=== PATIENT | male | born 2000 | race Caucasian/White ===

== ENCOUNTER 2024-08-03 03:22 | Emergency (ER) | payer BC ==
--- OUTSIDE RECORDS SUMMARY | 2024-08-03 03:25 | XMS REPORT | Continuity of Care Document ---
Author Name Unknown Address [address] [facility] [address] [place] [address] [facility] Address [address] [place] [address] [address] [place] [address] Care Team Providers Care Art Objects Supervisor Name Role Phone Pcp, Patient Does Not Have A Primary Care Physic bianca Lucia Ferrer Attending Clinician [phone] Unknown, Attending Attending Clinician Unavailab LUCIA Castorena Attending Clinician Unavailable TAY STERLING Attending Clinician Unavaila Tay Marinelli Attending Clinician + [phone] Jai Avendano NP Attending Clinician [phone] Unknown, Attending Attending Clinician Unavailab Damaris Adan Attending Clinician [phone] DAMARIS BOSCH Attending Clinician Unavailable DAKOTA MELGAR Attending Clinician UnavailLucia Singleton Attending Clinician [phone] Doctor Unassigned, Larimore Attending Clinician U navailable Yesika Little Attending Clinician [phone] YESIKA OMER Attending Clinician Unavailable RADHA ARITA Attending Clinician Unavailable Radha Villarreal Attending Clinician [phone] Dakota Melgar MD Attending Clinician [phone] UNKNOWN, ATTENDING Attending Clinician Unavailab Estela Heredia Attending Clinician [phone] Danish Torres MD Attending Clinician [phone] Payers Payer Name Policy Type Policy Number Effective Date Expirati on Date Source [employer] [id number] 2022 00:00:00 Problems Condition Name Condition Details Condition Category Status Onset Date Resolution Date Last Treatment Date Treating Clinician Comments Source 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 episode Disease Active 2019-07 00:00: 00 [facility] KEVIN (generaliz ed anxiety disorder) KEVIN (generaliz ed anxiety disorder) Disease Active 2019-07 00:00: 00 [facility] No known active problems No known active problems Disease [facility] Allergies, Adverse Reactions, Alerts Allergy Name Allergy Type Status Severity Reaction(s) Onset Date Inactive Date Treating Clinician Comments Source NO KNOWN ALLERGIE S Drug Class Active [facility] Social History Social Habit Start Date Stop Date Quantity Comments [facility] intake 2024-06-10 00:00:00 2024-06-10 00:00:00 2.14 /d [facility] Alcohol intake 2023-07-24 00:00:00 2023-07-24 00:00:00 2.14 /d [facility] Exposure to SARS-CoV-2 (event) 2022-09-20 00:00:00 2022-09-30 14:06:00 Not sure [facility] History of Social function 2020-07-24 00:00:00 2020-07-24 00:00:00 [facility] Tobacco use and exposure 2018-06-20 00:00:00 2018-06-20 00:00:00 Smokeless tobacco non-user [facility] Sex assigned at 2000 00:00:00 2000 00:00:00 [facility] Smoking Status Start Date Stop Date Source Never smoked tobacco [facility] Medications Ordered Medication Name Filled Medication Name Start Date Stop Date Current Medication? Ordering Clinician Indication Dosage Frequency Signature (SIG) Comments Components Source methylPREDN ISolone (MEDROL, MARYANNE,) 4 mg tablets 2023-07 00:00: 00 Yes [id number] Take by mouth SEE-INSTRU CTIONS. follow package directions [facility] promethazin e-dextromet horphan 6.25-15 mg/5 mL syrup 2023-07 00:00: 00 06-21 05:59 :00 Yes [id number] 5mL Take 5 mL by mouth 4 (four) times daily as needed for Cough for up to 10 days. [facility] fexofenadin e-pseudoeph edrine (MY-D) 60-120 mg per tablet 2023-07 00:00: 00 06-16 05:59 :00 Yes [id number] 1{tbl} Take 1 tablet by mouth in the morning for 5 days. [facility] cephALEXin 500 mg capsule 2023-07 0 00:00: 00 05-21 04:59 :00 Yes [id number] 500mg Take 1 capsule by mouth in the morning and 1 capsule at noon and 1 capsule in the evening. Do all this for 7 days. [facility] Butalbital- Acetaminoph en-Caff (FIORICET) 50-300-40 mg per capsule -08 00:00: 00 Yes [id number] 1{capsu le} Take 1 capsule by mouth every 4 (four) hours as needed for Other (headache) . [facility] azithromyci n 250 mg tablet 01-20 00:00: 00 09-30 00:00 :00 No [id number] 250mg Take 1 tablet by mouth daily. Take 500 mg day 1, then 250 mg days 2 to 5. [facility] bromphenira mine-pseudo ephedrine-D M (BROMFED DM) 2-30-10 mg/5 mL syrup 01-20 00:00: 00 09-30 00:00 :00 No [id number] 2.5mL Take 2.5 mL by mouth 4 (four) times daily as needed for Congestion /Allergies , Cold symptoms or Cough. [facility] mirtazapine 45 mg tablet 2019-07 230 00:00: 01-13 00:00 :00 No [id number] 45mg Take 1 tablet by mouth at bedtime. [facility] mirtazapine 15 mg tablet 2019-07 2-14 00:00: 00 07-24 00:00 :00 No [facility] mirtazapine 30 mg tablet 2019-07 0-20 00:00: 00 07-24 00:00 :00 No [facility] mupirocin 2 % ointment 02-22 00:00: 00 Yes [id number] Apply to area(s) 3 (three) times daily. [facility] clindamycin 300 mg capsule 02-22 00:00: 00 03-02 04:59 :00 No [id number] 300mg Take 1 capsule by mouth 3 (three) times daily for 7 days. [facility] No known medications No Un shira [facility] Immunizations Ordered Immunization Name Filled Immunization Name Date Status Comments Source Influenza Virus Vaccine Quad .5 mL IM 6+ MO 2020-05-26 00:00:00 Completed [facility] Influenza Virus Vaccine Quad .5 mL IM 6+ MO 2020-05-26 00:00:00 Completed [facility] Influenza Virus Vaccine Quad .5 mL IM 6+ MO 2020-05-26 00:00:00 Completed [facility] Influenza Virus Vaccine Quad .5 mL IM 6+ MO 2020-05-26 00:00:00 Completed [facility] Influenza Virus Vaccine Quad .5 mL IM 6+ MO 2020-05-26 00:00:00 Completed [facility] Influenza Virus Vaccine Quad .5 mL IM 6+ MO 2020-05-26 00:00:00 Completed [facility] Influenza Virus Vaccine Quad .5 mL IM 6+ MO (FLUZONE/FLULAVAL/F LUARIX) 2020-05-26 00:00:00 Completed [facility] Influenza Virus Vaccine Quad .5 mL IM 6+ MO 2020-05-26 00:00:00 Completed [facility] Influenza Virus Vaccine Quad .5 mL IM 6+ MO 2020-05-26 00:00:00 Completed [facility] Influenza Virus Vaccine Quad .5 mL IM 6+ MO 2020-05-26 00:00:00 Completed [facility] Influenza Virus Vaccine Quad .5 mL IM 6+ MO (FLUZONE/FLULAVAL/F LUARIX) Unknown Completed [facility] Influenza Virus Vaccine Quad .5 mL IM 6+ MO (FLUZONE/FLULAVAL/F LUARIX) Unknown Completed [facility] Influenza Virus Vaccine Quad .5 mL IM 6+ MO (FLUZONE/FLULAVAL/F LUARIX) Unknown Completed [facility] Vital Signs Vital Name Observation Time Observation Value Comments S ource Systolic blood pressure 2024-06-10 17:52:00 129 mm[Hg] [facility] Diastolic blood pressure 2024-06-10 17:52:00 78 mm[Hg] [facility] Heart rate 2024-06-10 17:52:00 71 /min [facility] Body temperature 2024-06-10 17:52:00 36.44 Marlena [facility] Respiratory rate 2024-06-10 17:52:00 16 /min [facility] Body height 2024-06-10 17:52:00 172.7 cm [facility] Body weight 2024-06-10 17:52:00 62.143 kg [facility] BMI 2024-06-10 17:52:00 20.83 kg/m2 [facility] Oxygen saturation in Arterial blood by Pulse oximetry 2024-06-10 17:52:00 98 /min [facility] Systolic blood pressure 2024-05-13 18:50:00 124 mm[Hg] [facility] Diastolic blood pressure 2024-05-13 18:50:00 74 mm[Hg] [facility] Heart rate 2024-05-13 18:50:00 74 /min [facility] Body temperature 2024-05-13 18:50:00 36.61 Marlena [facility] Respiratory rate 2024-05-13 18:50:00 16 /min [facility] Body height 2024-05-13 18:50:00 172.7 cm [facility] Body weight 2024-05-13 18:50:00 64.093 kg [facility] BMI 2024-05-13 18:50:00 21.48 kg/m2 [facility] Oxygen saturation in Arterial blood by Pulse oximetry 2024-05-13 18:50:00 96 /min [facility] Systolic blood pressure 2023-07-24 19:18:00 128 mm[Hg] [facility] Diastolic blood pressure 2023-07-24 19:18:00 81 mm[Hg] [facility] Heart rate 2023-07-24 19:18:00 96 /min [facility] Body temperature 2023-07-24 19:18:00 36.72 Marlena [facility] Respiratory rate 2023-07-24 19:18:00 24 /min [facility] Body height 2023-07-24 19:18:00 160 cm [facility] Body weight 2023-07-24 19:18:00 65.182 kg [facility] BMI 2023-07-24 19:18:00 25.46 kg/m2 [facility] Oxygen saturation in Arterial blood by Pulse oximetry 2023-07-24 19:18:00 98 /min [facility] Systolic blood pressure 2023-06-20 21:25:00 137 mm[Hg] [facility] Diastolic blood pressure 2023-06-20 21:25:00 89 mm[Hg] [facility] Heart rate 2023-06-20 21:25:00 103 /min [facility] Body temperature 2023-06-20 21:25:00 36.72 Marlena [facility] Respiratory rate 2023-06-20 21:25:00 18 /min [facility] Body weight 2023-06-20 21:25:00 67.132 kg [facility] BMI 2023-06-20 21:25:00 22.50 kg/m2 [facility] Oxygen saturation in Arterial blood by Pulse oximetry 2023-06-20 21:25:00 98 /min [facility] Systolic blood pressure 2022-09-30 20:07:00 142 mm[Hg] [facility] Diastolic blood pressure 2022-09-30 20:07:00 64 mm[Hg] [facility] Heart rate 2022-09-30 20:07:00 92 /min [facility] Body temperature 2022-09-30 20:07:00 37.06 Marlena [facility] Respiratory rate 2022-09-30 20:07:00 18 /min [facility] Body height 2022-09-30 20:07:00 172.7 cm [facility] Body weight 2022-09-30 20:07:00 74.844 kg [facility] BMI 2022-09-30 20:07:00 25.09 kg/m2 [facility] Oxygen saturation in Arterial blood by Pulse oximetry 2022-09-30 20:07:00 98 /min [facility] Systolic blood pressure 2022-09-10 15:35:00 144 mm[Hg] [facility] Diastolic blood pressure 2022-09-10 15:35:00 73 mm[Hg] [facility] Heart rate 2022-09-10 15:34:00 87 /min [facility] Body temperature 2022-09-10 15:34:00 36.44 Marlena [facility] Respiratory rate 2022-09-10 15:34:00 18 /min [facility] Body weight 2022-09-10 15:34:00 74.844 kg [facility] BMI 2022-09-10 15:34:00 25.09 kg/m2 [facility] Oxygen saturation in Arterial blood by Pulse oximetry 2022-09-10 15:34:00 99 /min [facility] Systolic blood pressure 2022-01-21 00:36:00 130 mm[Hg] [facility] Diastolic blood pressure 2022-01-21 00:36:00 70 mm[Hg] [facility] Heart rate 2022-01-21 00:36:00 65 /min [facility] Body temperature 2022-01-21 00:36:00 37 Marlena [facility] Respiratory rate 2022-01-21 00:36:00 18 /min [facility] Body height 2022-01-21 00:36:00 172.7 cm [facility] Body weight 2022-01-21 00:36:00 69.854 kg [facility] BMI 2022-01-21 00:36:00 23.42 kg/m2 [facility] Oxygen saturation in Arterial blood by Pulse oximetry 2022-01-21 00:36:00 99 /min [facility] Systolic blood pressure 2022-01-13 14:50:00 130 mm[Hg] [facility] Diastolic blood pressure 2022-01-13 14:50:00 79 mm[Hg] [facility] Heart rate 2022-01-13 14:50:00 76 /min [facility] Body temperature 2022-01-13 14:50:00 36.67 Marlena [facility] Respiratory rate 2022-01-13 14:50:00 16 /min [facility] Body height 2022-01-13 14:50:00 172.7 cm [facility] Body weight 2022-01-13 14:50:00 70.308 kg [facility] BMI 2022-01-13 14:50:00 23.57 kg/m2 [facility] Oxygen saturation in Arterial blood by Pulse oximetry 2022-01-13 14:50:00 97 /min [facility] Systolic blood pressure 2020-07-24 20:50:00 120 mm[Hg] [facility] Diastolic blood pressure 2020-07-24 20:50:00 60 mm[Hg] [facility] Heart rate 2020-07-24 20:50:00 78 /min [facility] Body temperature 2020-07-24 20:50:00 36.72 Mralena [facility] Respiratory rate 2020-07-24 20:50:00 18 /min [facility] Body height 2020-07-24 20:50:00 170.2 cm [facility] Body weight 2020-07-24 20:50:00 68.04 kg [facility] BMI 2020-07-24 20:50:00 23.49 kg/m2 [facility] Oxygen saturation in Arterial blood by Pulse oximetry 2020-07-24 20:50:00 98 /min [facility] Systolic blood pressure 2020-03-10 20:40:00 122 mm[Hg] [facility] Diastolic blood pressure 2020-03-10 20:40:00 73 mm[Hg] [facility] Heart rate 2020-03-10 20:40:00 78 /min [facility] Body temperature 2020-03-10 20:40:00 36.94 Marlena [facility] Respiratory rate 2020-03-10 20:40:00 18 /min [facility] Body height 2020-03-10 20:40:00 170 cm [facility] Body weight 2020-03-10 20:40:00 71.804 kg [facility] BMI 2020-03-10 20:40:00 24.85 kg/m2 [facility] Oxygen saturation in Arterial blood by Pulse oximetry 2020-03-10 20:40:00 97 /min [facility] Systolic blood pressure 2020-01-16 17:06:00 146 mm[Hg] [facility] Diastolic blood pressure 2020-01-16 17:06:00 76 mm[Hg] [facility] Heart rate 2020-01-16 17:06:00 76 /min [facility] Body temperature 2020-01-16 17:06:00 36.78 Marlena [facility] Respiratory rate 2020-01-16 17:06:00 20 /min [facility] Body weight 2020-01-16 17:06:00 68.04 kg [facility] Oxygen saturation in Arterial blood by Pulse oximetry 2020-01-16 17:06:00 99 /min [facility] Systolic blood pressure 2019-02-22 18:07:00 142 mm[Hg] [facility] Diastolic blood pressure 2019-02-22 18:07:00 69 mm[Hg] [facility] Heart rate 2019-02-22 18:07:00 63 /min [facility] Body temperature 2019-02-22 18:07:00 36.39 Marlena [facility] Respiratory rate 2019-02-22 18:07:00 18 /min [facility] Body height 2019-02-22 18:07:00 166.8 cm [facility] Body weight 2019-02-22 18:07:00 59.8 kg [facility] BMI 2019-02-22 18:07:00 21.49 kg/m2 [facility] Procedures Procedure Date / Time Performed Performing Clinician Source POCT SARS-COV-2 ANTIGEN (BINAX NOW) 2024-06-10 18:40:00 Lucia Lieberman [facility] POCT MOLECULAR FLU 2024-06-10 17:56:00 Unknown, Attend [facility] POCT MOLECULAR STREP 2024-06-10 17:54:00 Unknown, Attghazal kearns [facility] POCT MOLECULAR FLU 2023-06-20 21:47:00 Unknown, Attend [facility] POCT MOLECULAR STREP 2023-06-20 21:31:00 Unknown, Attghazal kearns [facility] PATIENT FINANCIAL POLICY 2022-09-30 19:57:05 Doctor Unassigned, Larimore [facility] ASSIGNMENT OF BENEFITS 2022-09-10 15:15:57 Aramis philip Unassigned, Larimore [facility] AUTHORIZATION FOR RELEASE OF PHI 2020-08-02 06:01:00 Doctor Unassigned, Larimore [facility] PATIENT QUESTIONNAIRE 2020-07-24 06:01:00 Doctor Unassigned, Larimore [facility] ASSIGNMENT OF BENEFITS 2019-02-22 17:55:48 Docto r Unassigned, Larimore [facility] Encounters Start Date/Time End Date/Time Encounter Type Admission Type Attending [facility] Facility Care Department Encounter ID Source 2024-06-10 11:45:00 2024-06-10 12:00:00 Urgent Care Lucia Lieberman Unknown, Attending [facility] [id number] 350.1.13.10 4.2.7.2.686 [id number] [facility] 2024-06-10 11:45:00 2024-06-10 11:45:00 Outpatient R LUCIA LIEBERMAN [facility] [id number] [facility] 2024-05-13 14:30:00 2024-05-13 14:31:34 Outpatient R TAY STERLING [facility] [id number] [facility] 2024-05-13 14:30:00 2024-05-13 14:31:34 Urgent Care Tay Sterling [facility] 1.2840.114 350.1.13.10 4.2.7.2.686 [id number] [facility] 2023-07-24 13:15:00 2023-07-24 13:30:00 Urgent Care Jai Avendano Heather, Attending [facility] 1.2840.114 350.1.13.10 4.2.7.2.686 [id number] [facility] 2023-07-24 13:15:00 2023-07-24 13:15:00 Outpatient R JAI AVENDANO [facility] [id number] [facility] 2023-06-25 00:00:00 2023-06-25 00:00:00 Telephone Damaris Bosch [facility] [id number] 350.1.13.10 4.2.7.2.686 [id number] [facility] 2023-06-20 15:30:00 2023-06-20 15:45:00 Urgent Care Damaris Bosch Unknown, Attending [facility] 1.2840.114 350.1.13.10 4.2.7.2.686 [id number] [facility] 2023-06-20 15:30:00 2023-06-20 15:30:00 Outpatient R DAMARIS BOSCH [facility] [id number] [facility] 2022-10-07 13:40:00 2022-10-07 13:40:00 Outpatient R DAKOTA MELGAR [facility] [id number] [facility] 2022-09-30 14:30:00 2022-09-30 14:45:00 Urgent Care Lucia Lieberman, Attending [facility] 1.0.114 350.1.13.10 4.2.7.2.686 [id number] [facility] 2022-09-30 14:30:00 2022-09-30 14:30:00 Outpatient LUCIA PERDUE [facility] [id number] [facility] 2022-09-30 00:00:00 2022-09-30 00:00:00 Orders Only Doctor Unassigned, Larimore [facility] 1.0.114 350.1.13.10 4.2.7.2.686 [id number] [facility] 2022-09-10 09:30:00 2022-09-10 09:45:00 Urgent Care Lucia Lieberman Unknown, Attending [facility] 1..114 350.1.13.10 4.2.7.2.686 [id number] [facility] 2022-09-10 09:30:00 2022-09-10 09:30:00 Outpatient LUCIA PERDUE [facility] [id number] [facility] 2022-09-10 00:00:00 2022-09-10 00:00:00 Orders Only Doctor Unassigned, Larimore [facility] 1..114 350.1.13.10 4.2.7.2.686 [id number] [facility] 2022-01-20 19:45:00 2022-01-20 20:00:00 Urgent Care Yesika Omer Quirino Unknown, Attending [facility] 1.0.114 350.1.13.10 4.2.7.2.686 [id number] [facility] 2022-01-20 19:45:00 2022-01-20 19:45:00 Outpatient R YESIKA OMER [facility] [id number] [facility] 2022-01-13 10:00:00 2022-01-13 10:40:43 Outpatient R RADHA ARITA [facility] [id number] [facility] 2022-01-13 10:00:00 2022-01-13 10:40:43 Urgent Care Radha Arita Unknown, Attending [facility] [id number] 350.1.13.10 4.2.7.2.686 [id number] [facility] 2020-08-02 00:00:00 2020-08-02 00:00:00 Orders Only Doctor Unassigned, Larimore [facility] 1.2.840.114 350.1.13.10 4.2.7.2.686 [id number] [facility] 2020-07-24 14:42:31 2020-07-24 15:02:31 Office Visit Dakota Melgar [facility] 1.2.840.114 350.1.13.10 4.2.7.2.686 [id number] [facility] 2020-07-24 14:40:00 2020-07-24 14:40:00 Outpatient R DAKOTA MELGAR [facility] [id number] [facility] 2020-07-24 00:00:00 2020-07-24 00:00:00 Orders Only Doctor Unassigned, Larimore [facility] 1.2840.114 350.1.13.10 4.2.7.2.686 [id number] [facility] 2020-07-16 10:00:00 2020-07-16 10:00:00 Outpatient R DAKOTA MELGAR [facility] [id number] [facility] 2020-03-10 14:50:39 2020-03-10 17:06:52 Urgent Care Radha Arita Unknown, Attending [facility] 1.2840.114 350.1.13.10 4.2.7.2.686 [id number] [facility] 2020-03-10 16:15:00 2020-03-10 16:15:00 Outpatient R UNKNOWN, ATTENDING [facility] [id number] [facility] 2020-01-16 11:33:46 2020-01-16 12:34:53 Urgent Care Estela Stevens Unknown, Attending [facility] 1.2840.114 350.1.13.10 4.2.7.2.686 [id number] [facility] 2020-01-16 12:30:00 2020-01-16 12:30:00 Outpatient R UNKNOWN, ATTENDING [facility] [id number] [facility] 2019-02-22 12:57:29 2019-02-22 15:57:25 Urgent Care Danish Torres [facility] [id number] 350.1.13.10 4.2.7.2.686 [id number] [facility] 2019-02-22 00:00:00 2019-02-22 00:00:00 Orders Only Doctor Unassigned, Larimore [facility] 1..840.114 350.1.13.10 4.2.7.2.686 [id number] [facility] Results Test Description Test Time Test Comments Results Result [facility] [id number] 18:07:34* Test Item Value Reference Range Interpretation Comme nts POCT Molecular FluA (test co de = 65953-0) Negative Negative POCT Molecular FluB (test co de = 48145-7) Negative Negative Lab Interpretation (test cod e = 43226-5) Normal [facility] MOLECULAR [id number] 18:02:31* Test Item Value Reference Range Interpretation Comme nts POCT Molecular Strep (test c ode = 27605-7) Negative Negative Lab Interpretation (test cod e = 66455-4) Normal [facility] MOLECULAR [id number] 22:00:02* Test Item Value Reference Range Interpretation Comme nts POCT Molecular FluA (test co de = 42894-5) Negative Negative POCT Molecular FluB (test co de = 23832-3) Negative Negative Lab Interpretation (test cod e = 18526-8) Normal [facility] MOLECULAR [id number] 21:39:17* Test Item Value Reference Range Interpretation Comme nts POCT Molecular Strep (test c ode = 95389-5) Negative Negative Lab Interpretation (test cod e = 78017-5) [facility]
[2024-08-03] MEDS ORDERED: THIAMINE 200 MG/2 ML INJ ONE (03:48)
[2024-08-03] MEDS ORDERED: NA CHLORIDE 0.9% 2,000 ML ONE (03:49)
[2024-08-03 03:56] LABS: Absolute Lymphocytes (CBC) 1.2 K/uL (0.7-4.9); Absolute Monocytes 0.6 K/uL (0.1-1.3); Absolute Neutrophil 4.3 K/uL (1.8-8.0); Basophils % 0.5 % (0-1.3); Eosinophils % 0.5 % (0-4.4); Hematocrit 42.1 % (39.6-49.0); Hemoglobin 14.2 g/dL (13.6-17.9); Lymphocytes % 20.1 % (15.3-44.8); MCH 30.3 pg (27.0-35.0); MCHC 33.6 g/dL (32.0-36.0); MCV 90.2 fL (80-100); MPV 7.3 fL (7.6-11.3); Monocytes % 9.2 % (3.3-12.3); Neutrophils % 69.7 % (41.7-73.7); Nucleated Red Blood Cells % 0.1 % (0-0); Platelets 320 thou/uL (152-406); RBC Red Blood Cell Count 4.67 M/uL (4.33-5.43); Red Cell Distribution Width 13.8 % (12.1-15.2)
[2024-08-03 03:58] LABS: PT Prothrombin Time 11.5 SECONDS (9.4-12.5); PTT, Activated Partial Thromb 26.1 SECONDS (24.3-36.9); Protime INR 1.03
[2024-08-03 04:09] LABS: ALT/SGPT 40 U/L (16-61); AST/SGOT 27 U/L (15-37); Albumin 3.9 g/dL (3.4-5.0); Albumin/Globulin Ratio 1.1 (1.1-1.8); Alkaline Phosphatase 63 U/L (45-117); Anion Gap 10.1 mEq/L (5.0-15.0); BUN Blood Urea Nitrogen 8 mg/dL (7-18); Bicarbonate 24 mEq/L (21-32); Bilirubin Direct 0.2 mg/dL (0-0.2); Bilirubin Indirect, Calculated 0.9 mg/dL (0.2-0.8); Bilirubin Total 1.1 mg/dL (0.2-1.0); Globulin 3.4 g/dL (2.3-3.5); Glomerular Filtration Rate 124 ml/min (=/>90); Glucose Level 104 mg/dL (74-106); Potassium 4.1 mEq/L (3.5-5.1); Protein, Total 7.3 g/dL (6.4-8.2); Sodium Level 135 mEq/L (136-145)
[2024-08-03] MEDS ORDERED: ONDANSETRON 4 MG/2 ML VIAL ONE (04:49)
--- NOTE | 2024-08-03 06:56 | ER ---
Nurse's Notes [facility] Name: Steve Vega Age: 23 yrs Sex: Male : 2000 Arrival Date: 08/03/2024 Time: 03:22 Bed 18 Private MD: Diagnosis: Alcohol abuse with intoxication;Acute depression with suicidal ideation and plan Presentation: 08/03 03:35 Chief complaint: EMS states: Suicidal ideation. ay 03:35 Coronavirus screen: Client denies travel out of the [place] in the last 14 days. Ebola ay Screen: No symptoms or risks identified at this time. Initial Sepsis Screen: Does the patient meet any 2 criteria? No. Patient's initial sepsis screen is negative. Does the patient have a suspected source of infection? No. Patient's initial sepsis screen is negative. Risk Assessment: Do you want to hurt yourself or someone else? Other: Pt did not respond but is suicidal risk. Note Per report pt transferred all his money to his girlfriend and stated he wanted to kill himself. He turned off his phone and when his phone was pinged and located, he was found passed out in his car with a gun in his hand. He passed out after taking a bunch of gummies per EMS report. Onset of symptoms is unknown. 03:35 Acuity: CHASITY 2 ay 03:35 Method Of Arrival: EMS: [facility] ay Triage Assessment: 03:35 General: Appears in no apparent distress. sleeping. Behavior is calm, uncooperative. ay Pain: Denies pain. EENT: No signs and/or symptoms were reported regarding the EENT system. Neuro: Level of Consciousness is sleeping. Oriented to refused to respond. Cardiovascular: Capillary refill < 3 seconds. Respiratory: Airway is patent Respiratory effort is even, unlabored, Respiratory pattern is regular, symmetrical. Historical: - Allergies: 08: No Known Allergies; ko1 - Home Meds: 08: Lexapro Oral [Active]; ko1 - PMHx: 08:22 Depressive disorder; ko1 - PSHx: 08:22 None; ko1 - Immunization history:: unknown. - Infectious Disease History:: unknown. - Family history:: not pertinent. - Social history:: Smoking status: unknown. Screenin: [facility] ED Fall Risk Assessment (Adult) History of falling in the last 3 months, ko1 including since admission No falls in past 3 months (0 pts) Confusion or Disorientation No (0 pts) Intoxicated or Sedated No (0 pts) Impaired Gait No (0 pts) Mobility Assist Device Used No (0 pt) Altered Elimination No (0 pt) Score/Fall Risk Level 0 - 2 = Low Risk Oriented to surroundings, Maintained a safe environment, Educated pt \\T\\ family on fall prevention, incl call for assistance when getting out of bed, Assessed \\T\\ reinforced patient's understanding of fall precautions, Provided non-skid footwear, Hourly rounding (assess needs \\T\\ fall precautionary measures) done. Abuse screen: Denies threats or abuse. Denies injuries from another. Nutritional screening: No deficits noted. Tuberculosis screening: No symptoms or risk factors identified. Assessment: 04:00 Reassessment: See Triage Assessment. ay 07:00 Reassessment: Patient appears in no apparent distress at this time. Patient and/or ko1 family updated on plan of care and expected duration. Pain level reassessed. Patient is alert, oriented x 3, equal unlabored respirations, skin warm/dry/pink. General: Appears in no apparent distress. Behavior is calm, cooperative, appropriate for age. Pain: Denies pain. Neuro: No deficits noted. Cardiovascular: No deficits noted. Respiratory: No deficits noted. GI: No deficits noted. No signs and/or symptoms were reported involving the gastrointestinal system. : No deficits noted. No signs and/or symptoms were reported regarding the genitourinary system. EENT: No deficits noted. No signs and/or symptoms were reported regarding the EENT system. Derm: No deficits noted. No signs and/or symptoms reported regarding the dermatologic system. Musculoskeletal: No deficits noted. No signs and/or symptoms reported regarding the musculoskeletal system. 08:00 Reassessment: Patient appears in no apparent distress at this time. No changes from ko1 previously documented assessment. Patient and/or family updated on plan of care and expected duration. Pain level reassessed. Patient is alert, oriented x 3, equal unlabored respirations, skin warm/dry/pink. 09:00 Reassessment: Patient appears in no apparent distress at this time. No changes from ko1 previously documented assessment. Patient and/or family updated on plan of care and expected duration. Pain level reassessed. Patient is alert, oriented x 3, equal unlabored respirations, skin warm/dry/pink. 10:00 Reassessment: Patient appears in no apparent distress at this time. No changes from ko1 previously documented assessment. Patient and/or family updated on plan of care and expected duration. Pain level reassessed. Patient is alert, oriented x 3, equal unlabored respirations, skin warm/dry/pink. 11:00 Reassessment: Patient appears in no apparent distress at this time. No changes from ko1 previously documented assessment. Patient and/or family updated on plan of care and expected duration. Pain level reassessed. Patient is alert, oriented x 3, equal unlabored respirations, skin warm/dry/pink. 12:00 Reassessment: Patient appears in no apparent distress at this time. No changes from ko1 previously documented assessment. Patient and/or family updated on plan of care and expected duration. Pain level reassessed. Psych: 03:25 [place] Suicide Severity Screening: In the past month, have you wished you were ay or wished you could go to sleep and not wake up? No response "In the past month, have you actually had any thoughts of killing yourself?" No response "In your lifetime, have you ever done anything, started to do anything, or prepared to do anything to end your life?" No response Pt not responding to any questions. Subjective: Patient's mood is sleepy. Objective: Patient is appears to be sleeping Speech is not responding to questions Affect is. Interventions: Removed personal items and placed in bag. cell phone and wallet handed to security. Safety Checks: Personal items have been removed. Door is open. No visitors are present at this time. pt took a bunch of gummies. Commitment: Patient will be an involuntary commitment. Vital Signs: 03:24 BP 114 / 61 LA Supine (auto/reg); Pulse 80; Temp 97.8; Pulse Ox 98% on R/A; sa1 07:26 BP 105 / 56; Pulse 76; Resp 16; Temp 96.8; Pulse Ox 98% on R/A; nh2 12:35 BP 121 / 73; Pulse 80; Resp 16; Temp 97.1(O); Pulse Ox 98% on R/A; nh2 [place] Coma Score: 05:37 Eye Response: to pain(2). Motor Response: localizes pain(5). Verbal Response: sp4 incomprehensible(2). Total: 9. ED Course: 03:23 Patient arrived in ED. vc1 03:24 Aramis Jett MD is Attending Physician. sp4 03:31 Jesus Lynch, RN is Primary Nurse. ay 03:35 Arm band placed on right wrist. ay 03:36 Inserted saline lock: 20 gauge in right antecubital area, using aseptic technique. sa1 Blood collected. Flushed with 10 mL NS. 03:36 Initial lab(s) drawn, by me, sent to lab. sa1 03:57 Warm blanket given. sa1 03:58 EKG done, by ED staff. sa1 04:00 Patient has correct armband on for positive identification. Bed in low position. Side ay rails up X2. Adult w/ patient. Patient is placed in psych hold. 06:28 Triage completed. ay 07:39 Urinalysis w/ reflexes Sent. nh2 07:39 Urine Drug Screen Sent. nh2 08:22 Patient requests rest room assistance. ko1 08:22 No provider procedures requiring assistance completed. ko1 08:22 Provided Education on: SI observation. Assisted to bathroom. ko1 11:54 Pt clinical information faxed to Mitali Nunes. em1 13:00 IV discontinued, intact, bleeding controlled, No redness/swelling at site. Pressure ko1 dressing applied. Administered Medications: 03:57 Drug: Thiamine IV 100 mg IV at bolus once Route: IV; Rate: bolus; Site: right ay antecubital; 07:00 Follow up: Response: No adverse reaction; IV Status: Completed infusion; IV Intake: [id number] 03:57 Drug: NS 0.9% IV 1000 ml IV at 1000 ml once; to be given as a bolus over 60 minutes ay Route: IV; Rate: 1000 ml; Site: right antecubital; 07:00 Follow up: Response: No adverse reaction; IV Status: Completed infusion; IV Intake: ko1 1000ml 04:47 Drug: NS 0.9% IV 1000 ml IV at 1 bolus Per protocol; to be given as a bolus over 60 ay minutes Route: IV; Rate: 1 bolus; Site: right antecubital; 08:25 Follow up: Response: No adverse reaction; IV Status: Completed infusion; IV Intake: ko1 1000ml 04:47 Drug: Ondansetron IVP 4 mg IVP once; over 2 minutes Route: IVP; Site: right antecubital;ay 07:00 Follow up: Response: No adverse reaction ko1 Medication: 04:00 VIS not applicable for this client. ay Intake: 07:00 IV: 1000ml; Total: 1000ml. ko1 07:00 IV: 10ml; Total: 1010ml. ko1 08:25 IV: 1000ml; Total: 2010ml. ko1 Outcome: 06:55 ER care complete, transfer ordered by . naomi 13:00 Discharged to [facility] ko1 13:00 Condition: stable 13:00 Discharge instructions given to patient, EMS, Instructed on the need for transfer, Demonstrated understanding of instructions, 13:15 Patient left the ED. ss Signatures: Danish Fernandes em1 Suyapa Schafer, RN RN ss Teresa Adam RN RN 1 Mel Turk RN RN ko1 Aramis Jett MD MD sp4 Abdullah, Sultan sa1 Hernandez Jr, Noel nh2 Yakubu, Awudu, RN RN ay Corrections: (The following items were deleted from the chart) 07:21 02:35 Method Of Arrival: EMS: [facility] ay ay
--- NOTE | 2024-08-03 06:56 | EDPHYS ---
Physician Documentation [facility] Name: Steve Vega Age: 23 yrs Sex: Male : 2000 Arrival Date: 08/03/2024 Time: 03:22 Bed 18 Private MD: ED Physician Aramis Jett HPI: 08/03 03:24 This 23 yrs old Male presents to ER via Unassigned with complaints of sp4 Suicidal Ideation. 05:37 23-year-old male presents with EMS with moderate to severe intoxication. Patient sp4 apparently made multiple suicidal statements and went driving while intoxicated. Patient was found in his car with heavy intoxication also with a gun in his hand. Patient was delivered here by EMS and police was here as well. Patient is not able to provide any history. Secondary to moderate to heavy intoxication.. Historical: - Allergies: 08:22 No Known Allergies; ko1 - Home Meds: 08:22 Lexapro Oral [Active]; ko1 - PMHx: 08:22 Depressive disorder; ko1 - PSHx: 08:22 None; ko1 - Immunization history:: unknown. - Infectious Disease History:: unknown. - Family history:: not pertinent. - Social history:: Smoking status: unknown. ROS: 05:37 Constitutional: Negative for fever, chills, and weight loss, positive for intoxication sp4 positive for suicidal statements 05:37 All other systems are negative, Exam: 05:37 Constitutional: This is a well developed, well nourished patient who is heavily sp4 intoxicated and poorly arousable, no distress hemodynamically stable Head/Face: Normocephalic, atraumatic. Eyes: Pupils equal round and reactive to light, extra-ocular motions intact. Lids and lashes normal. Conjunctiva and sclera are not injected. Cornea within normal limits. Periorbital areas with no swelling, redness, or edema. ENT: Nares patent. No nasal discharge, no septal abnormalities noted. Tympanic membranes are normal and external auditory canals are clear. Oropharynx with no redness, swelling, or masses, exudates, or evidence of obstruction, uvula midline. Mucous membranes moist. Neck: Trachea midline, no thyromegaly or masses palpated, and no cervical lymphadenopathy. Supple, full range of motion without nuchal rigidity, or vertebral point tenderness. Chest/axilla: Normal chest wall appearance and motion. Nontender with no deformity. No lesions are appreciated. Cardiovascular: Regular rate and rhythm with a normal S1 and S2. No gallops, murmurs, or rubs. Normal PMI, no JVD. No pulse deficits. Respiratory: Lungs have equal breath sounds bilaterally, clear to auscultation and percussion. No rales, rhonchi or wheezes noted. No increased work of breathing, no retractions or nasal flaring. Abdomen/GI: Soft, with normal bowel sounds. No distension or tympany. No guarding or rebound. No evidence of tenderness throughout. Back: No spinal tenderness. No costovertebral tenderness. Skin: Warm, dry with normal turgor. Normal color with no rashes, no lesions, and no evidence of cellulitis. MS/ Extremity: Pulses equal, no cyanosis. Neurovascular intact. Full, normal range of motion. Neuro: Poorly arousable secondary to intoxication, moves all extremities, grossly no lateralizing deficits Psych: Exam is not possible secondary to intoxication 05:41 ECG was reviewed by the Attending Physician. EKG at 0 353 normal sinus rhythm rate 76 sp4 Vital Signs: 03:24 BP 114 / 61 LA Supine (auto/reg); Pulse 80; Temp 97.8; Pulse Ox 98% on R/A; sa1 07:26 BP 105 / 56; Pulse 76; Resp 16; Temp 96.8; Pulse Ox 98% on R/A; nh2 12:35 BP 121 / 73; Pulse 80; Resp 16; Temp 97.1(O); Pulse Ox 98% on R/A; nh2 [place] Coma Score: 05:37 Eye Response: to pain(2). Motor Response: localizes pain(5). Verbal Response: sp4 incomprehensible(2). Total: 9. MDM: 03:25 Medical Screening Exam initiated sp4 05:41 Differential diagnosis: drug withdrawal. acute psychotic break, depression, psychosis sp4 secondary to non-compliance, Intoxication. Data reviewed: vital signs, nurses notes, EMS record, lab test result(s), EKG. 06:52 Consideration of Admission/Observation Escalation of care including sp4 admission/observation considered. Transition of care: After a detail discussion of the patient's case, care is transferred to Francis Khoury MD. ED course: Patient's care will be transferred to the next emergency physician in line. Patient is still sobering up. 08/03 03:25 Order name: Acetaminophen; Complete Time: 05:35 sp4 08/03 03:25 Order name: Basic Metabolic Panel; Complete Time: 05:35 sp4 08/03 03:25 Order name: CBC with Diff; Complete Time: 05:35 sp4 08/03 03:25 Order name: ETOH Level; Complete Time: 05:35 sp4 08/03 03:25 Order name: Hepatic Function; Complete Time: 05:35 sp4 08/03 03:25 Order name: PT-INR; Complete Time: 05:35 sp4 08/03 03:25 Order name: Ptt, Activated; Complete Time: :35 sp4 08/03 03:25 Order name: Salicylate; Complete Time: 05:35 sp4 08/03 03:25 Order name: Urinalysis w/ reflexes sp4 08/03 03:25 Order name: Urine Drug Screen 4 08/03 10:35 Order name: ETOH Level 08/03 03:25 Order name: EKG; Complete Time: 03:25 sp4 08/03 03:25 Order name: EKG - Nurse/Tech; Complete Time: 04:44 sp4 08/03 03:25 Order name: IV Saline Lock; Complete Time: 04:44 sp4 08/03 03:25 Order name: Labs collected and sent; Complete Time: 04:44 sp4 08/03 03:25 Order name: Suicide Precautions; Complete Time: 08: sp4 08/03 03:25 Order name: Suicide Screening ([place]); Complete Time: 08: sp4 EC:53 Rate is 76 beats/min. Rhythm is regular, Normal Sinus Rhythm. QRS [place] is Normal. [place] sp4 interval is normal. QRS interval is normal. QT interval is normal. No Q waves. T waves are Normal. No ST changes noted. Clinical impression: Normal ECG. Interpreted by me. Reviewed by me. Administered Medications: 03:57 Drug: Thiamine IV 100 mg IV at bolus once Route: IV; Rate: bolus; Site: right ay antecubital; 07:00 Follow up: Response: No adverse reaction; IV Status: Completed infusion; IV Intake: [id number] 03:57 Drug: NS 0.9% IV 1000 ml IV at 1000 ml once; to be given as a bolus over 60 minutes ay Route: IV; Rate: 1000 ml; Site: right antecubital; 07:00 Follow up: Response: No adverse reaction; IV Status: Completed infusion; IV Intake: ko1 1000ml 04:47 Drug: NS 0.9% IV 1000 ml IV at 1 bolus Per protocol; to be given as a bolus over 60 ay minutes Route: IV; Rate: 1 bolus; Site: right antecubital; 08:25 Follow up: Response: No adverse reaction; IV Status: Completed infusion; IV Intake: ko1 1000ml 04:47 Drug: Ondansetron IVP 4 mg IVP once; over 2 minutes Route: IVP; Site: right antecubital;ay 07:00 Follow up: Response: No adverse reaction ko1 Disposition Summary: 08/03/24 06:55 Transfer Ordered Notes: Transfer Location: [facility] sp4 Reason: Higher level of care sp4 Condition: Stable sp4 Problem: new sp4 Symptoms: have improved sp4 Accepting Physician: Accepting psychiatrist(08/03/24 13:15) ss Diagnosis - Alcohol abuse with intoxication sp4 - Acute depression with suicidal ideation and plan sp4 Forms: - Medication Reconciliation Form sp4 - SBAR form sp4 Signatures: Dispatcher [employer] Suyapa Parikh RN RN Teresa Alvarado RN RN vc1 Mel Turk RN RN ko1 Aramis Jett MD MD sp4 Jesus Lynch RN JUAN DIEGO ay Corrections: (The following items were deleted from the chart) 03:25 03:25 ACETAMINOPHEN+C.LAB.BRZ ordered. EDMS EDMS 03:25 03:25 BASIC METABOLIC PANEL+C.LAB.BRZ ordered. EDMS EDMS 03:25 03:25 CBC+H.LAB.BRZ ordered. EDMS EDMS 03:25 03:25 ETHANOL+C.LAB.BRZ ordered. EDMS EDMS 03:25 03:25 HEPATIC FUNCTION+C.LAB.BRZ ordered. EDMS EDMS 03:25 03:25 PROTIME (+INR)+COAG.LAB.BRZ ordered. EDMS EDMS 03:25 03:25 PTT, ACTIVATED+COAG.LAB.BRZ ordered. EDMS EDMS 03: 03:25 SALICYLATE+C.LAB.BRZ ordered. EDMS EDMS 03: 03:25 Urinalysis+U.LAB.BRZ ordered. EDMS EDMS 03: 03:25 URINE DRUG SCREEN+UC.LAB.BRZ ordered. EDMS EDMS 13:15 06:55 Accepting psychiatrist sp4 ss
[2024-08-03 07:57] LABS: Specific Gravity 1.008 (1.005-1.030); Sqamous Epithelial None Seen /HPF (None Seen); Urine Bacteria None Seen /HPF (<20); Urine Bilirubin NEGATIVE (Negative); Urine Blood Negative (Negative); Urine Clarity Turbid (Clear); Urine Color Light-Yellow (Yellow); Urine Culture Reflex Order NOT NEEDED; Urine Glucose NEGATIVE (Negative); Urine Ketones NEGATIVE (Negative); Urine Microscopic Reflex YN ORDER UMIC; Urine Mucus 3+ /HPF (None Seen); Urine Nitrite NEGATIVE (Negative); Urine Protein NEGATIVE (Negative); Urine RBC <5 /HPF (None Seen); Urine Urobilinogen Normal (Normal); Urine WBC <5 /HPF (<5)
[2024-08-03 07:59] LABS: Barbiturates NEGATIVE (NEGATIVE); Benzodiazepines NEGATIVE (NEGATIVE); Cocaine NEGATIVE (NEGATIVE); METHAMPHETAM NEGATIVE (NEGATIVE); Methadone NEGATIVE (NEGATIVE); Opiates NEGATIVE (NEGATIVE); Phencyclidine NEGATIVE (NEGATIVE); THC Cannibis POSITIVE (NEGATIVE)
[2024-08-03 13:19] VITALS: O2SAT 98
[2024-08-03 13:23] VITALS: BP 121/73; TEMP 97.1
--- NOTE | 2024-08-07 10:57 | EKG ---
Test Date: 2024-08-03 Test Time: 03:53:22 Assistant Manager Of Operations: MEASUREMENT RESULTS: Intervals: Rate: 76 NH: 158 QRSD: 104 QT: 370 QTc: 416 [place]: P: 73 NH: 158 QRS: 86 T: 59 INTERPRETIVE STATEMENTS: Normal sinus rhythm Normal ECG No previous ECG available for comparison Electronically Signed On 08-07-24 10:51:56 TWX OPERATOR by Dre Schafer
== END 2024-08-03 13:15 ==
LOC: ER 03:22
DX: R45.851 Suicidal ideations (principal); F10.129 Alcohol abuse with intoxication, unspecified; F32.A Depression, unspecified
CPT/HCPCS: 96365; 96361; 93005; 85025; 81001; 80048; 36415; 85610; 80076; 85730; 80307; 96375; 99285; 96366; 80143; 80179; 82077 ×2; J3411; J2405; J7030